=== PATIENT | female | born 1950 | race African-American/Black ===

== ENCOUNTER 2016-08-12 01:03 | Inpatient (IN) | payer MEDICAID, OTHER ==
[~2016-08-12] VITALS: Ht 165.1 cm; Wt 113.4 kg
[~2016-08-12 01:03] MED LIST: LOSA50TA20 PO; LUBI24CA5 PO; OMEP40CA34 PO
[2016-08-12] MEDS ORDERED: NITROGLYCERIN OINT 1GM/INCH UDPKT TD ONE (01:45)
[2016-08-12 02:00] LABS: BASOPHILS % 0.5 % (0.0-2.0); EOSINOPHILS % 2.9 % (0.0-5.0); HEMATOCRIT. 38.6 % (36.0-48.0); HEMOGLOBIN. 12.7 g/dL (12.0-16.0); MEAN CORPUSCULAR HEMOGLOBIN 30.8 pg (28.0-32.0); MEAN CORPUSCULAR VOLUME 93.2 fL (81.0-99.0); MONOCYTES % 10.6 % (2.0-8.0); PLATELET 207 x1000/uL (130-400); RED BLOOD CELL COUNT 4.14 mill/uL (4.2-5.4); RED CELL DISTRIBUTION WIDTH 14.6 % (11.6-14.6); WHITE BLOOD COUNT 5.9 x1000/uL (4.5-11.0)
[2016-08-12 02:09] LABS: ALANINE AMINOTRANSFERASE 13 IU/L (13-61); ALBUMIN 3.5 g/dL (3.4-5.0); ANION GAP 14; CALCIUM 8.1 mg/dL (8.5-10.1); CARBON DIOXIDE 23 mEq/L (21-32); CHLORIDE 112 mEq/L (98-107); INDEX HEMOLYSI 1 (1-3); INDEX ICTERIC 1 (1-4); INDEX LIPEMIC 1 (1-3); NT PRO B-TYPE NATRIURETIC PEP 98 pg/mL (5-125); TROPONIN I < 0.02 ng/mL (0.00-0.04); UREA NITROGEN BLOOD 9 mg/dL (7-21); eGFR > 60 mL/min (>60)
[2016-08-12] MEDS ORDERED: MORPHINE SULFATE 4 MG/ML CPJ (NOT FOR IM USE) IV ONE (04:00)
[2016-08-12 06:45] VITALS: BP 112/71
[2016-08-12] MEDS ORDERED: DOCUSATE SODIUM 100MG CAPSULE PO PRN (08:30)
[2016-08-12] MEDS ORDERED: ONDANSETRON HCL 4MG/2ML VIAL IV PRN (08:30)
[2016-08-12] MEDS ORDERED: DIPHENHYDRAMINE 50MG/ML VIAL IV PRN (08:30)
[2016-08-12] MEDS ORDERED: ACETAMINOPHEN 325MG TABLET PO PRN (08:30)
[2016-08-12] MEDS ORDERED: ACETAMINOPHEN 650MG SUPP PR PRN (08:30)
[2016-08-12] MEDS ORDERED: HYDROCODONE/ACETAMINOPHEN 5/325MG TABLET PO PRN (08:30)
[2016-08-12] MEDS ORDERED: ENOXAPARIN 40MG/0.4ML SYR SUBCUT SCH (08:30)
[2016-08-12] MEDS ORDERED: MAGNESIUM/ALUMINUM HYDROXIDE/SIMETHICONE 30ML UDC PO PRN (08:30)
[2016-08-12] MEDS ORDERED: ACETAMINOPHEN 650MG/20.3ML UDC GT PRN (08:30)
[2016-08-12] MEDS ORDERED: NA PHOS,M-B/NA PHOS,DI-BA ENEMA 118ML PR PRN (08:30)
[2016-08-12] MEDS ORDERED: IPRATROPIUM/ALBUTEROL 0.5-3(2.5)MG/3ML NEB INH PRN (08:30)
[2016-08-12] MEDS ORDERED: GUAIFENESIN 200MG/10ML SUGAR FREE UDC PO PRN (08:30)
[2016-08-12 09:00] VITALS: BP 112/71
[2016-08-12] MEDS ORDERED: ENOXAPARIN 30MG/0.3ML SYR SUBCUT SCH (09:00)
[2016-08-12] MEDS ORDERED: REGADENOSON 0.4 MG/5 ML IV ONE ×2 (09:45→12:01)
[2016-08-12] MEDS ORDERED: CLOPIDOGREL 75MG TABLET PO SCH (09:45)
[2016-08-12] MEDS ORDERED: SODIUM CHLORIDE 0.9% 10ML VIAL ONE (10:58)
[2016-08-12] MEDS ORDERED: IOHEXOL-350 100 ML BOTTLE ONE (10:58)
[2016-08-12] MEDS ORDERED: INFLUENZA VIRUS VACCINE 0.5ML SYR IM ONE (11:00)
[2016-08-12] MEDS ORDERED: PNEUMOC 13-VAL CONJ-DIP CRM/PF 0.5 ML DISP.SYRIN IM ONE (11:00)
[2016-08-12] MEDS ORDERED: METF500T4 PO (11:02)
[2016-08-12] MEDS ORDERED: CHOL100026 GT (11:05)
[2016-08-12 11:06] LABS: T4 FREE 0.86 ng/dL (0.76-1.46); THYROID STIMULATING HORMONE 1.8 uIU/mL (0.36-3.74)
[2016-08-12] MEDS ORDERED: IBUP-1510 PO (11:06)
[2016-08-12] MEDS ORDERED: LINA5TAB PO (11:07)
[2016-08-12] MEDS ORDERED: PNEUMOCOCCAL 23-VAL P-SAC VAC 0.5 ML IM ONE (11:15)
[2016-08-12 12:00] VITALS: BP 124/76
[2016-08-12] MEDS ORDERED: SODIUM CHLORIDE 0.9% INJ 3ML FLUSH IVF SCH (14:00)
[2016-08-12 16:00] VITALS: BP 98/59
[2016-08-12 16:20] LABS: CREATINE KINASE 82 IU/L (26-192); CREATINE KINASE MB FRACTION 1.2 ng/mL (0.5-3.6); INDEX HEMOLYSI 1 (1-3); TROPONIN I < 0.02 ng/mL (0.00-0.04)
[2016-08-12 18:08] VITALS: BP 96/59
[2016-08-13] MEDS ORDERED: ASPIRIN 81MG TABLET PO SCH (09:00)
== END 2016-08-12 19:40 | disposition home or self-care (01) | DRG 203 ==
LOC: ER 01:07 → 5WST 04:43
PROVIDERS: ADMIT Family Medicine; ATTEND Family Medicine
DX: R07.89 Other chest pain (principal); Z99.81 Dependence on supplemental oxygen; I11.9 Hypertensive heart disease without heart failure; J44.9 Chronic obstructive pulmonary disease, unspecified; E78.5 Hyperlipidemia, unspecified; E11.9 Type 2 diabetes mellitus without complications; F17.200 Nicotine dependence, unspecified, uncomplicated; Z96.643 Presence of artificial hip joint, bilateral; F10.10 Alcohol abuse, uncomplicated; Z85.038 Personal history of other malignant neoplasm of large intestine
CPT/HCPCS: 36415; 71010; 71275; 78452; 80053; 82550; 82553; 82962; 83036; 83880; 84439; 84443; 84484; 85025; 85379; 90732; 93005; 93017; 93306; A4216; A9500; J1650; J2785; Q9967